=== PATIENT | male | born 1990 | race Caucasian/White ===

== ENCOUNTER 2016-10-13 16:52 | Emergency (ER) | payer OTHER ==
[2016-10-13 17:04] VITALS: BP 146/70; PULSE 82; RESP 18; TEMP 98.5
[2016-10-13] MEDS ORDERED: PROPARACAINE 0.5% OPHTH DROPS 15 ML BTL LEFT EYE STA (17:05)
[2016-10-13] MEDS ORDERED: ERYTHROMYCIN 5 MG/GM OPHTH OINT 3.5 GM TUBE RIGHT EYE STA (17:24)
--- NOTE | 2016-10-13 17:26 | ED ---
General Adult HPI - General Chief complaint: Eye Problems Stated complaint: metal in eye Time Seen by Provider: 10/13/16 17:04 Source: patient, RN notes reviewed Mode of arrival: ambulatory Limitations: no limitations - History of Present Illness Initial comments: This is a 26-year-old male presents for an body to the right eye 1 hour. Patient states he was grinding metal at home when he noticed a foreign body in his eye. Patient states he attempted to remove the foreign body but was unsuccessful. Patient states he still has a foreign body sensation. Patient denies any vision changes. Patient states he is up-to-date on his tetanus shot. Patient does not wear contacts. Patient denies any discharge from the eye. Patient denies any recent fever, chills, shortness breath, chest pain, abdominal pain, nausea/vomiting/diarrhea, back pain, numbness, tingling, hematuria, headache, or any other complaints. - Related Data Previous Rx's Medication Instructions Recorded Erythromycin Ophth Oint [Romycin 1 applic RIGHT EYE QID 7 Days 10/13/16 Ophth Oint] Allergies Allergy/AdvReac Type Severity Reaction Status Date / Time No Known Allergies Allergy Verified 10/13/16 17:06 Review of Systems ROS Statement: Those systems with pertinent positive or pertinent negative responses have been documented in the HPI. ROS Other: All systems not noted in ROS Statement are negative. Past Medical History Past Medical History: No Reported History History of Any Multi-Drug Resistant Organisms: None Reported Past Surgical History: No Surgical Hx Reported Past Psychological History: No Psychological Hx Reported Smoking Status: Current every day smoker Past Alcohol Use History: None Reported Past Drug Use History: None Reported, Marijuana General Exam - General Exam Comments Initial Comments: General: The patient is awake and alert, in no distress, and does not appear acutely ill. Eye: There is no foreign body visualized with observation or with eyelid eversion. There is mild erythema to the conjunctiva of the right eye. Left eye with normal conjunctiva. Pupils are equal, round and reactive to light, extra-ocular movements are intact. No nystagmus. No signs of icterus. Visual acuity is equal on both sides. Neck: The neck is supple, there is no tenderness or JVD. Cardiovascular: There is a regular rate and rhythm. No murmur, rub or gallop is appreciated. Respiratory: Lungs are clear to auscultation, respirations are non-labored, breath sounds are equal. No wheezes, stridor, rales, or rhonchi. Musculoskeletal: Normal ROM, no tenderness. Strength 5/5. Sensation intact. Pulses equal bilaterally 2+. Neurological: A&O x 3. CN II-XII intact, There are no obvious motor or sensory deficits. Coordination appears grossly intact. Speech is normal. Skin: Skin is warm and dry and no rashes or lesions are noted. Psychiatric: Cooperative, appropriate mood & affect, normal judgment. Limitations: no limitations Course Vital Signs 10/13/16 17:02 Temperature 98.5 F Pulse Rate 82 Respiratory 18 Rate Blood Pressure 146/70 O2 Sat by Pulse 98 Oximetry Medical Decision Making - Medical Decision Making This is a 26-year-old male presents with foreign body sensation to the right eye. On physical exam visual acuity is equal on both sides. There is no foreign body visualized with observation or with eyelid eversion. Pupils are equal, round and reactive to light, extra-ocular movements are intact. No nystagmus. There is normal conjunctiva bilaterally. No signs of icterus. Visual acuity is equal on both sides. Proparacaine was used to anesthetize the eye. Patient's symptoms were relieved after proparacaine drops. Inverted lids to check for foreign body and no foreign body was noted. A slit lamp exam was performed and corneal abrasion was noted to the 3 o'clock position around the iris. No rust ring noted. No foreign body was noted. Patient tolerated procedure well. I discussed with patient that he'll be given erythromycin ointment. I discussed follow-up with ophthalmology in one to 2 days. Discussed return parameters. Discussed over- the-counter Tylenol and or Motrin as needed for any pain. Patient was receptive to this plan and refused stronger pain medication. Discussed that patient should follow up with PCP in one to 2 days or return to the [facility] for any worsening symptoms or for any further concerns. Patient was receptive to this plan and patient will be discharged home. I discussed this case with attending physician Dr. Jack agrees with plan as stated above. Disposition Clinical Impression: Corneal abrasion Disposition: HOME SELF-CARE Condition: Good Instructions: Eye Foreign Body (ED) Additional Instructions: Please follow-up with ophthalmology in one to 2 days. Please use antibiotic ointment as prescribed. Please use [id number] Tylenol or Motrin as needed for any pain. Please follow-up with family doctor in the next 2 days of symptoms have not improved. Please return to emergency room if the symptoms increase or worsen or for any other concerns. Prescriptions: Erythromycin Ophth Oint [Romycin Ophth Oint] 1 applic RIGHT EYE QID 7 Days Referrals: Jareth Montelongo DO [Primary Care Provider] - 1-2 days Michael Zarate MD [STAFF PHYSICIAN] - 1-2 days Time of Disposition: 17:33
== END 2016-10-13 17:39 | disposition home or self-care (01) ==
LOC: EC 16:52
DX: T15.01XA Foreign body in cornea, right eye, initial encounter (principal); F17.200 Nicotine dependence, unspecified, uncomplicated; Y92.009 Unspecified place in unspecified non-institutional (private) residence as the place of occurrence of the external cause
CPT/HCPCS: 99283

== ENCOUNTER 2016-11-17 20:38 | Emergency (ER) | payer OTHER ==
[2016-11-17 21:29] VITALS: BP 138/76; PULSE 66; RESP 18; TEMP 97.6
--- NOTE | 2016-11-17 21:43 | ED ---
ENT HPI - General Chief complaint: Dental/Oral Stated complaint: Headache/Jaw Pain Time Seen by Provider: 11/17/16 21:30 Source: patient, RN notes reviewed, old records reviewed Mode of arrival: ambulatory Limitations: no limitations - History of Present Illness Initial comments: Patient is a 26-year-old male chief complaint of dental pain for approximately 2 days. Patient reports is a broken tooth. Patient states that his mainly over tooth #10. Patient denies any recent fever or chills or inability to open and close jaw. He denies any swelling around the tooth. Patient states that he has have a appointment with the dental clinic however he is unable to get at this time. Patient states that he would like to have some antibiotics to ensure that he does not have an infection when he does go to the dental clinic.Patient denies any recent fever, chills, shortness of breath, chest pain , back pain, abdominal pain, nausea vomiting, numbness or tingling, dysuria or hematuria, constipation or diarrhea, headaches or visual changes, or any other current symptoms - Related Data Previous Rx's Medication Instructions Recorded Acetaminophen-Codeine 300-30mg 1 tab PO Q4H PRN #10 tablet 11/17/16 [Tylenol #3] Penicillin V Potassium [Pen Vee K] 500 mg PO QID #40 tab 11/17/16 Allergies Allergy/AdvReac Type Severity Reaction Status Date / Time No Known Allergies Allergy Verified 11/17/16 21:25 Review of Systems ROS Statement: Those systems with pertinent positive or pertinent negative responses have been documented in the HPI. ROS Other: All systems not noted in ROS Statement are negative. Past Medical History Past Medical History: No Reported History History of Any Multi-Drug Resistant Organisms: None Reported Past Surgical History: No Surgical Hx Reported Past Psychological History: No Psychological Hx Reported Smoking Status: Current every day smoker Past Alcohol Use History: None Reported Past Drug Use History: None Reported, Marijuana General Exam Limitations: no limitations General appearance: alert, in no apparent distress Head exam: Present: atraumatic, normocephalic, normal inspection Eye exam: Present: normal appearance, PERRL, EOMI. Absent: scleral icterus, conjunctival injection, periorbital swelling ENT exam: Present: normal exam, mucous membranes moist, TM's normal bilaterally. Absent: normal oropharynx (Patient has multiple dental caries or tooth. Patient does have chipped tooth #10.) Neck exam: Present: normal inspection. Absent: tenderness, meningismus, lymphadenopathy Respiratory exam: Present: normal lung sounds bilaterally. Absent: respiratory distress, wheezes, rales, rhonchi, stridor Cardiovascular Exam: Present: regular rate, normal rhythm, normal heart sounds. Absent: systolic murmur, diastolic murmur, rubs, gallop, clicks GI/Abdominal exam: Present: soft, normal bowel sounds. Absent: distended, tenderness, guarding, rebound, rigid Extremities exam: Present: normal inspection, full ROM, normal capillary refill. Absent: tenderness, pedal edema, joint swelling, calf tenderness Back exam: Present: normal inspection Neurological exam: Present: alert, oriented X3, CN II-XII intact Psychiatric exam: Present: normal affect, normal mood Skin exam: Present: warm, dry, intact, normal color. Absent: rash Course Vital Signs 11/17/16 21:26 Temperature 97.6 F Pulse Rate 66 Respiratory 18 Rate Blood Pressure 138/76 O2 Sat by Pulse 99 Oximetry Medical Decision Making - Medical Decision Making Patient is 26-year-old male that she onset of dental pain. Patient reports that he to tooth #10. Patient has significant dental caries or Tylenol. Patient does not have a fever at this time. Patient was placed on antibiotics and pain medication. Patient advised on return parameters. Patient understands treatment plan will comply. Disposition Clinical Impression: Temporal headache, Pain, dental Disposition: HOME SELF-CARE Condition: Good Instructions: Toothache (ED) Additional Instructions: Patient advised to follow up with primary care provider if symptoms continue to persist. Patient advised to buy a mouth guard To sleep at night. [facility] [place] [address] [place] [address] [phone] (existing clients only) For new clients: [phone] 1st consult: $50 (includes Xrays) Usually 30% less then private dentist for visits after. [employer] [facility] [employer] Have to pay $50 for Xrays anmd rest is covered. [phone] Prescriptions: Acetaminophen-Codeine 300-30mg [Tylenol #3] 1 tab PO Q4H PRN #10 tablet PRN Reason: Pain Penicillin V Potassium [Pen Vee K] 500 mg PO QID #40 tab Referrals: Lidia Villanueva MD [REFERRING] - 1-2 days Time of Disposition: 21:40
== END 2016-11-17 21:49 | disposition home or self-care (01) ==
LOC: EC 20:38
DX: R51 Headache (principal); K08.89 Other specified disorders of teeth and supporting structures; F17.200 Nicotine dependence, unspecified, uncomplicated
CPT/HCPCS: 99283

== ENCOUNTER 2017-03-22 20:34 | Emergency (ER) | payer OTHER ==
[2017-03-22 20:38] VITALS: BP 123/65; PULSE 63; RESP 18; TEMP 97.6
--- NOTE | 2017-03-22 21:07 | ED ---
ENT HPI - General Chief complaint: ENT Stated complaint: Dental Pain Time Seen by Provider: 03/22/17 20:42 Source: patient, RN notes reviewed Mode of arrival: ambulatory Limitations: no limitations - History of Present Illness Initial comments: patient is a 26-year-old male presents to the emergency room for evaluation of dental pain. Patient states that he is scheduled to have his wisdom teeth pulled on 04/06/17. Patient states this his left lower teeth began increasingly bothering him over the past 2 days. Patient states he has been taking ibuprofen with no relief of symptoms. Patient states his throat is beginning to cause him pain, along with bilateral ear pain. Patient denies fevers or chills. Patient denies facial swelling. Patient denies trouble swallowing. Patient denies any other symptoms or complaints. - Related Data Previous Rx's Medication Instructions Recorded Acetaminophen with Codeine 1 tab PO Q4H PRN #12 tab 03/22/17 [Tylenol w/codeine #3] Penicillin V Potassium [Pen Vee K] 500 mg PO QID 10 Days 03/22/17 Allergies Allergy/AdvReac Type Severity Reaction Status Date / Time No Known Allergies Allergy Verified 03/22/17 20:38 Review of Systems ROS Statement: Those systems with pertinent positive or pertinent negative responses have been documented in the HPI. ROS Other: All systems not noted in ROS Statement are negative. Past Medical History Past Medical History: No Reported History History of Any Multi-Drug Resistant Organisms: None Reported Past Surgical History: No Surgical Hx Reported Past Psychological History: ADD/ADHD Smoking Status: Current every day smoker Past Alcohol Use History: None Reported Past Drug Use History: None Reported, Marijuana General Exam - General Exam Comments Initial Comments: sitting in exam room, no acute distress. Limitations: no limitations General appearance: alert, in no apparent distress Head exam: Present: atraumatic, normocephalic, normal inspection Eye exam: Present: normal appearance Expanded Mouth exam: Present: normal external inspection Teeth exam: Present: dental caries (erosion of teeth #17 and 32), dental tenderness # (17 ans 32) Throat exam: normal inspection Neck exam: Present: normal inspection Respiratory exam: Present: normal lung sounds bilaterally. Absent: respiratory distress Cardiovascular Exam: Present: regular rate, normal rhythm, normal heart sounds Extremities exam: Present: normal inspection Back exam: Present: normal inspection Neurological exam: Present: alert, oriented X3, CN II-XII intact, normal gait Psychiatric exam: Present: normal affect, normal mood Skin exam: Present: warm, dry, intact, normal color. Absent: rash Course Vital Signs 03/22/17 20:34 Temperature 97.6 F Pulse Rate 63 Respiratory 18 Rate Blood Pressure 123/65 O2 Sat by Pulse 99 Oximetry Medical Decision Making - Medical Decision Making Patient is a 26-year-old male presents to the emergency room for evaluation of dental pain. Patient placed in antibiotics and pain medications and advised to follow-up with dentist. Patient states he understands everything that was discussed with him. Return parameters discussed. Disposition Clinical Impression: Pain, dental Disposition: HOME SELF-CARE Condition: Good Instructions: Toothache (ED) Additional Instructions: Please follow up with a dentist. If you do not have a dentist, you may contact [facility]. Phone number is [phone] for existing clients. For new clients you may call [phone]. Another option is you have is the [facility]. Phone number is [phone]. Medications as directed. [place]water gargles. Cold fluids can sometimes help with pain as well. Return to the Emergency Room for any worsening or changing symptoms. Use cold compresses to the outside of the face. Prescriptions: Acetaminophen with Codeine [Tylenol w/codeine #3] 1 tab PO Q4H PRN #12 tab PRN Reason: Pain Penicillin V Potassium [Pen Vee K] 500 mg PO QID 10 Days Referrals: Jareth Montelongo DO [Primary Care Provider] - 1-2 days Time of Disposition: 21:03
== END 2017-03-22 21:14 | disposition home or self-care (01) ==
LOC: EC 20:34
DX: K08.89 Other specified disorders of teeth and supporting structures (principal); K02.9 Dental caries, unspecified; R07.0 Pain in throat; H92.03 Otalgia, bilateral; F17.200 Nicotine dependence, unspecified, uncomplicated
CPT/HCPCS: 99282

== ENCOUNTER 2019-01-20 21:03 | Emergency (ER) | payer OTHER ==
[2019-01-20] MEDS ORDERED: predniSONE 50 MG TAB PO STA (21:45)
[2019-01-20] MEDS ORDERED: IPRATROPIUM-ALBUTEROL 3 ML NEB INHALATION STA (21:45)
[2019-01-20 21:58] VITALS: RESP 16; TEMP 98.1
--- NOTE | 2019-01-20 22:34 | XR ---
EXAM: XR Chest, 2 Views CLINICAL HISTORY: ITS.REASON XR Reason: Pain TECHNIQUE: Frontal and lateral views of the chest. COMPARISON: Chest x-ray 05/05/2015 FINDINGS: Lungs: Lungs are clear of focal infiltrates or consolidations. Pleural space: No evidence of pleural effusion or pneumothorax. Heart: Heart size is within normal limits. Mediastinum: Mediastinal structures are unremarkable. Bones/joints: Imaged bony thorax is unremarkable. IMPRESSION: No evidence of acute cardiopulmonary disease.
--- NOTE | 2019-01-20 22:51 | ED ---
SOB HPI - General Chief Complaint: Shortness of Breath Stated Complaint: SOB Time Seen by Provider: 01/20/19 21:21 Source: patient Mode of arrival: ambulatory Limitations: no limitations - History of Present Illness Initial Comments: 28-year-old male patient presents to the emergency department today for evaluation of shortness of breath and cough. Patient states that he quit smoking around 22 days ago. Patient states he was using cigarettes, a vape pen, and marijuana. The patient states 3-4 days ago he developed upper respiratory symptoms including nasal congestion and cough. Patient states he feels congested in his chest but is unable to get up any sputum. He denies any fever or chills with this. Denies any sore throat. Denies any history of chronic lung conditions. Denies taking any medication for his symptoms. Patient denies any recent rash, chest pain, abdominal pain, nausea, vomiting, diarrhea, constipation, back pain, numbness, tingling, dizziness, weakness, hematuria, dysuria, urinary urgency, urinary frequency, headache, visual changes, or any other complaints. - Related Data Previous Rx's Medication Instructions Recorded Acetaminophen with Codeine 1 tab PO Q4H PRN #12 tab 03/22/17 [Tylenol w/codeine #3] Penicillin V Potassium [Pen Vee K] 500 mg PO QID 10 Days tab 03/22/17 Albuterol Sulfate [Proair Hfa] 1 - 2 puff INHALATION Q6HR PRN #1 01/20/19 inhaler predniSONE 50 mg PO DAILY #5 tablet 01/20/19 Allergies Allergy/AdvReac Type Severity Reaction Status Date / Time No Known Allergies Allergy Verified 01/20/19 21:20 Review of Systems ROS Statement: Those systems with pertinent positive or pertinent negative responses have been documented in the HPI. ROS Other: All systems not noted in ROS Statement are negative. Past Medical History Past Medical History: No Reported History History of Any Multi-Drug Resistant Organisms: None Reported Past Surgical History: No Surgical Hx Reported Past Psychological History: ADD/ADHD Smoking Status: Former smoker Past Alcohol Use History: None Reported Past Drug Use History: Marijuana General Exam Limitations: no limitations General appearance: alert, in no apparent distress, other (Physical well- developed, well-nourished adult male patient in no acute distress. Vital signs upon presentation are temperature 98.0F, pulse 81, respirations 18, blood pressure 152/82, pulse ox 99% on room air.) Eye exam: Present: normal appearance, PERRL, EOMI. Absent: scleral icterus, conjunctival injection, periorbital swelling ENT exam: Present: normal exam, normal oropharynx, mucous membranes moist Respiratory exam: Present: normal lung sounds bilaterally. Absent: respiratory distress, wheezes, rales, rhonchi, stridor Cardiovascular Exam: Present: regular rate, normal rhythm, normal heart sounds. Absent: systolic murmur, diastolic murmur, rubs, gallop, clicks GI/Abdominal exam: Present: soft, normal bowel sounds. Absent: distended, tenderness, guarding, rebound, rigid Neurological exam: Present: alert, oriented X3, CN II-XII intact Psychiatric exam: Present: normal affect, normal mood Skin exam: Present: warm, dry, intact, normal color. Absent: rash Course Vital Signs 01/20/19 01/20/19 01/20/19 21:17 21:29 21:57 Temperature 98.0 F 98.1 F Pulse Rate 81 62 Respiratory 18 18 16 Rate Blood Pressure 152/82 134/91 O2 Sat by Pulse 99 100 Oximetry 01/20/19 01/20/19 01/20/19 22:05 22:12 22:58 Temperature Pulse Rate 64 62 79 Respiratory 16 Rate Blood Pressure 134/88 O2 Sat by Pulse 97 Oximetry Medical Decision Making - Medical Decision Making 28-year-old male patient presents to the emergency department today for complaints of shortness of breath and cough. Physical examination reveals clear equal lung sounds. Patient did receive a breathing treatment here in the department, states he does feel much improvement of symptoms after receiving this. Chest x-ray showed no acute cardio pulmonary process. Given patient's recent upper respiratory illness and history of smoking there is concern for acute bronchitis. We discharged with steroids and Pro Air inhaler. He is instructed to follow-up with his primary care physician for recheck in 1-2 days. Return parameters were discussed in detail. He verbalizes understanding and agrees with this plan. - Radiology Data Radiology results: report reviewed, image reviewed Two-view x-ray of the chest is obtained. Report was reviewed in its entirety. Impression by Dr. Mcneal shows no evidence of acute cardiopulmonary disease. Disposition Clinical Impression: Acute bronchitis, Anxiety Disposition: HOME SELF-CARE Condition: Good Instructions (If sedation given, give patient instructions): Acute Bronchitis (ED), Anxiety (ED) Additional Instructions: Use medications as directed. Follow up with her primary care physician for recheck in 1-2 days. Return to the emergency department immediately for any new, worsening, or concerning symptoms. Prescriptions: predniSONE 50 mg PO DAILY #5 tablet Albuterol Sulfate [Proair Hfa] 1 - 2 puff INHALATION Q6HR PRN #1 inhaler PRN Reason: Shortness Of Breath Is patient prescribed a controlled substance at d/c from ED?: No Referrals: Jareth Montelongo DO [Primary Care Provider] - 1-2 days Time of Disposition: 22:51
[2019-01-20 22:59] VITALS: BP 134/88; PULSE 79
== END 2019-01-20 22:59 | disposition home or self-care (01) ==
LOC: EC 21:03
DX: J20.9 Acute bronchitis, unspecified (principal); F41.9 Anxiety disorder, unspecified; Z87.891 Personal history of nicotine dependence
CPT/HCPCS: 99285; 94640; 71046; J7512

== ENCOUNTER 2019-01-29 02:08 | Emergency (ER) | payer OTHER ==
[2019-01-29 02:16] VITALS: BP 144/95; TEMP 98.5
[2019-01-29] MEDS ORDERED: DIPH,PERTUS(ACELL)TETVAC-LF 0.5 ML VIAL IM ONE (02:43)
[2019-01-29] MEDS ORDERED: IPRATROPIUM-ALBUTEROL 3 ML NEB INHALATION STA (02:44)
[2019-01-29] MEDS ORDERED: AMOXIC-POT CLAV 875-125MG 1 EACH TAB PO STA (02:44)
[2019-01-29] MEDS ORDERED: ACETAMINOPHEN TAB 325 MG TAB PO STA (02:44)
--- NOTE | 2019-01-29 03:04 | CT ---
EXAM: CT Head Without Intravenous Contrast CLINICAL HISTORY: ITS.REASON CT Reason: Pain TECHNIQUE: Axial computed tomography images of the head/brain without intravenous contrast. CTDI is 45 mGy and DLP is 961 mGy-cm. This CT exam was performed using one or more of the following dose reduction techniques: automated exposure control, adjustment of the mA and/or kV according to patient size, and/or use of iterative reconstruction technique. COMPARISON: No relevant prior studies available. FINDINGS: Brain: No hemorrhage, large hypodensity, or mass effect. Ventricles: No hydrocephalus. Bones/joints: Unremarkable. Soft tissues: Unremarkable. Sinuses: Unremarkable. Mastoid air cells: Clear. IMPRESSION: No acute hemorrhage, hydrocephalus, or mass effect. EXAM: CT Cervical Spine Without Intravenous Contrast CLINICAL HISTORY: ITS.REASON CT Reason: Pain TECHNIQUE: Axial computed tomography images of the cervical spine without intravenous contrast. CTDI is 11 mGy and DLP is 322 mGy-cm. This CT exam was performed using one or more of the following dose reduction techniques: automated exposure control, adjustment of the mA and/or kV according to patient size, and/or use of iterative reconstruction technique. COMPARISON: No relevant prior studies available. FINDINGS: Vertebrae: No acute fracture. Discs/spinal canal/neural foramina: No high grade spinal canal stenosis. Soft tissues: Unremarkable. IMPRESSION: No acute fracture or subluxation.
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
[2019-01-29 03:08] VITALS: RESP 16
[2019-01-29 03:13] VITALS: PULSE 82
--- NOTE | 2019-01-29 03:16 | XR ---
EXAM: XR Right Hand Complete, 3 or More Views CLINICAL HISTORY: ITS.REASON XR Reason: Pain TECHNIQUE: Frontal, lateral and oblique views of the right hand. COMPARISON: No relevant prior studies available. FINDINGS: Bones/joints: No acute fracture. No dislocation. Soft tissues: Unremarkable. No radiopaque foreign body. IMPRESSION: No acute findings.
--- NOTE | 2019-01-29 03:17 | XR ---
EXAM: XR Chest, 2 Views CLINICAL HISTORY: ITS.REASON XR Reason: Pain TECHNIQUE: Frontal and lateral views of the chest. COMPARISON: 01/20/19 x-ray FINDINGS: Lungs: No consolidation or mass. Pleural space: No effusion. Heart: No cardiomegaly. Mediastinum: Unremarkable. Bones/joints: No acute findings. IMPRESSION: No acute cardiopulmonary process.
== END 2019-01-29 03:43 | disposition home or self-care (01) ==
LOC: EC 02:08
DX: S60.511A Abrasion of right hand, initial encounter (principal); S00.81XA Abrasion of other part of head, initial encounter; S20.311A Abrasion of right front wall of thorax, initial encounter; R11.2 Nausea with vomiting, unspecified; J45.909 Unspecified asthma, uncomplicated; Z23 Encounter for immunization; Z87.891 Personal history of nicotine dependence; Y04.0XXA Assault by unarmed brawl or fight, initial encounter
CPT/HCPCS: 70450; 71046; 72125; 90471; 90715; 94640; 99285

== ENCOUNTER 2019-08-30 15:02 | Emergency (ER) | payer OTHER ==
[2019-08-30 15:24] VITALS: RESP 18; TEMP 98.1
[2019-08-30] MEDS ORDERED: SODIUM CHLORIDE 0.9% 1,000 ML IV STA (15:45)
--- NOTE | 2019-08-30 15:45 | ED ---
General Adult HPI - General Chief complaint: Nausea/Vomiting/Diarrhea Stated complaint: Vomiting, Fever Time Seen by Provider: 08/30/19 15:31 Source: patient Mode of arrival: ambulatory Limitations: no limitations - History of Present Illness Initial comments: Patient is a 22-year-old male presenting to the emergency department with this patient complaint of nausea vomiting diarrhea. Patient reports he was exposed to his girlfriend who had similar type symptoms. Patient reports generalized body aches. He denies any abdominal pain but states an occasional ache after episodes of vomiting. Patient reports his girlfriend developed similar symptoms after they had breakfast together at a restaurant. Denies hematemesis, hematuria, hematochezia or melena. Does report chills but denies any fevers. Denies taking any other medication to alleviate his symptoms. - Related Data Previous Rx's Medication Instructions Recorded Acetaminophen with Codeine 1 tab PO Q4H PRN #12 tab 03/22/17 [Tylenol w/codeine #3] Penicillin V Potassium [Pen Vee K] 500 mg PO QID 10 Days tab 03/22/17 Albuterol Sulfate [Proair Hfa] 1 - 2 puff INHALATION Q6HR PRN #1 01/20/19 inhaler predniSONE 50 mg PO DAILY #5 tablet 01/20/19 Amoxicillin/Potassium Clav 1 each PO Q12HR #20 tab 01/29/19 [Augmentin 875-125 Tablet] Ondansetron Odt [Zofran Odt] 4 mg PO Q8HR PRN #10 tab 08/30/19 Allergies Allergy/AdvReac Type Severity Reaction Status Date / Time No Known Allergies Allergy Verified 08/30/19 15:24 Review of Systems ROS Statement: Those systems with pertinent positive or pertinent negative responses have been documented in the HPI. ROS Other: All systems not noted in ROS Statement are negative. Past Medical History Past Medical History: No Reported History History of Any Multi-Drug Resistant Organisms: None Reported Past Surgical History: No Surgical Hx Reported Past Psychological History: ADD/ADHD Smoking Status: Current every day smoker Past Alcohol Use History: None Reported Past Drug Use History: None Reported General Exam Limitations: no limitations General appearance: alert, in no apparent distress Head exam: Present: atraumatic, normocephalic, normal inspection Eye exam: Present: normal appearance, PERRL, EOMI Pupils: Present: normal accommodation ENT exam: Present: normal exam, normal oropharynx (Uvula midline. No tonsillar exudates or erythema.), mucous membranes moist, TM's normal bilaterally, normal external ear exam Neck exam: Present: normal inspection, full ROM Respiratory exam: Present: normal lung sounds bilaterally Cardiovascular Exam: Present: regular rate, normal rhythm, normal heart sounds GI/Abdominal exam: Present: soft. Absent: distended, tenderness, guarding Extremities exam: Present: normal inspection, full ROM Back exam: Present: normal inspection, full ROM Neurological exam: Present: alert, oriented X3 Psychiatric exam: Present: normal affect, normal mood Skin exam: Present: warm, dry, intact, normal color Course Vital Signs 08/30/19 08/30/19 15:21 17:08 Temperature 98.1 F Pulse Rate 65 73 Respiratory 18 18 Rate Blood Pressure 111/78 135/84 O2 Sat by Pulse 97 97 Oximetry Medical Decision Making - Medical Decision Making Patient is a 21-year-old male presenting to emergency Department with a chief complaint of nausea vomiting diarrhea. On initial evaluation patient is nauseous but is unable to vomit. Influenza negative. Patient given fluids, antiemetics. Reevaluation patient reports his symptoms have greatly improved. I suspect the patient has gastroenteritis considering his girlfriend has similar symptoms after eating at a restaurant. Patient has minimal abdominal pain and is only present due to the repeated vomiting. No fevers. Patient will be discharged with Zofran and advised to drink lots of fluids. Strict return parameters were thoroughly discussed with patient was under sitting agreeable. Case discussed with physician. - Lab Data Lab Results 08/30/19 Range/Units 16:05 Influenza Type A RNA Not Detected (Not Detectd) Influenza Type B (PCR) Not Detected (Not Detectd) Disposition Clinical Impression: Gastroenteritis, Food poisoning Disposition: HOME SELF-CARE Condition: Stable Instructions (If sedation given, give patient instructions): Acute Nausea and Vomiting (ED) Additional Instructions: Take prescribed medication as directed. Please drink lots of fluids. Please return to emergency department if symptoms worsen. Prescriptions: Ondansetron Odt [Zofran Odt] 4 mg PO Q8HR PRN #10 tab PRN Reason: Nausea Is patient prescribed a controlled substance at d/c from ED?: No Referrals: Lidia Villanueva MD [Primary Care Provider] - 1-2 days Time of Disposition: 16:55
[2019-08-30] MEDS ORDERED: ONDANSETRON 4 MG ODT STARTER PACK 2 TAB BTL PO STA (16:54)
[2019-08-30 17:10] VITALS: BP 135/84; PULSE 73
== END 2019-08-30 17:09 | disposition home or self-care (01) ==
LOC: EC 15:02
DX: A05.9 Bacterial foodborne intoxication, unspecified (principal); F17.200 Nicotine dependence, unspecified, uncomplicated
CPT/HCPCS: 87502; 99284; 96360; S0119

== ENCOUNTER 2019-11-11 | Emergency (ER) | payer OTHER | END 2019-11-11 21:35 | disposition home or self-care (01) | CPT/HCPCS: 71046; 99284 ==

== ENCOUNTER 2020-02-29 10:34 | Emergency (ER) | payer OTHER ==
[2020-02-29 10:41] VITALS: RESP 18; TEMP 98.5
[2020-02-29] MEDS ORDERED: LIDOCAINE VISCOUS 2% 15 ML CUP MUCOUS MEM ONE (10:58)
[2020-02-29] MEDS ORDERED: DEXAMETHASONE 4 MG TAB PO STA (11:43)
--- NOTE | 2020-02-29 11:47 | ED ---
ENT HPI - General Chief complaint: ENT Stated complaint: sore throat Time Seen by Provider: 02/29/20 10:44 Source: patient Mode of arrival: ambulatory Limitations: no limitations - History of Present Illness Initial comments: Patient is a 29-year-old male with no past medical history who presents to the emergency room with reported sore throat. States it is throat felt sore a little bit last night. He states he slept very little. He stayed up all night smoking "a lot of cigarettes and weed." Reports there was severe this morning however has gotten better over the course of the day. He did not take any medications for his symptoms. He denies drooling, trismus, hoarseness or stridor. No sensation that his airway is closing off. Denies any neck pain. No ear pain, sore throat, nasal drainage. No sick contacts or recent travel. No fevers or chills. There are no alleviating, Perceptin or modifying factors - Related Data Previous Rx's Medication Instructions Recorded Acetaminophen with Codeine 1 tab PO Q4H PRN #12 tab 03/22/17 [Tylenol w/codeine #3] Penicillin V Potassium [Pen Vee K] 500 mg PO QID 10 Days tab 03/22/17 Albuterol Sulfate [Proair Hfa] 1 - 2 puff INHALATION Q6HR PRN #1 01/20/19 inhaler predniSONE 50 mg PO DAILY #5 tablet 01/20/19 Amoxicillin/Potassium Clav 1 each PO Q12HR #20 tab 01/29/19 [Augmentin 875-125 Tablet] Ondansetron Odt [Zofran Odt] 4 mg PO Q8HR PRN #10 tab 08/30/19 Albuterol Inhaler (Mhu) [Ventolin 1 - 2 puff INHALATION RT-Q6H PRN 11/11/19 Hfa Inhaler (Mhu)] #1 inhaler Amoxicillin 500 mg PO Q8H #21 capsule 11/11/19 Promethazine/Dextromethorphan 5 ml PO TID #120 ml 11/11/19 [Phenergan DM Syrup] predniSONE 50 mg PO DAILY #5 tablet 11/11/19 Allergies Allergy/AdvReac Type Severity Reaction Status Date / Time No Known Allergies Allergy Verified 02/29/20 10:41 Review of Systems ROS Statement: Those systems with pertinent positive or pertinent negative responses have been documented in the HPI. ROS Other: All systems not noted in ROS Statement are negative. Past Medical History Past Medical History: No Reported History History of Any Multi-Drug Resistant Organisms: None Reported Past Surgical History: No Surgical Hx Reported Past Psychological History: ADD/ADHD Smoking Status: Current every day smoker Past Alcohol Use History: Occasional Past Drug Use History: Marijuana General Exam Limitations: no limitations General appearance: alert, in no apparent distress Head exam: Present: atraumatic, normocephalic, normal inspection Eye exam: Present: normal appearance, PERRL, EOMI. Absent: scleral icterus, conjunctival injection, periorbital swelling ENT exam: Present: normal exam, mucous membranes moist, other (no drooling, trismus, hoarseness or stridor) Neck exam: Present: normal inspection. Absent: tenderness, meningismus, lymphadenopathy Respiratory exam: Present: normal lung sounds bilaterally. Absent: respiratory distress, wheezes, rales, rhonchi, stridor Course Vital Signs 02/29/20 02/29/20 10:38 11:52 Temperature 98.5 F Pulse Rate 77 70 Respiratory 18 18 Rate Blood Pressure 131/86 130/80 O2 Sat by Pulse 98 98 Oximetry Medical Decision Making - Medical Decision Making The patient placed into room 6. A thorough history and physical exam is performed. Patient's throat is swabbed for strep which is negative. He was given viscous lidocaine and a dose of Decadron. Patient is to follow up with his primary care doctor 2-4 days. Return to the emergency room for any new or worsening symptoms per patient was in agreement with the treatment plan is discharged in stable condition - Lab Data Lab Results 02/29/20 Range/Units 10:58 Group A Strep Rapid Negative (Negative) Disposition Clinical Impression: Throat irritation Disposition: HOME SELF-CARE Condition: Stable Instructions (If sedation given, give patient instructions): Pharyngitis (ED) Additional Instructions: Please follow up with your primary care doctor. Return to the emergency room for any new or worsening symptoms Is patient prescribed a controlled substance at d/c from ED?: No Referrals: Lidia Villanueva MD [Primary Care Provider] - 1-2 days Time of Disposition: 11:45
[2020-02-29 11:55] VITALS: BP 130/80; PULSE 70
== END 2020-02-29 11:52 | disposition home or self-care (01) ==
LOC: EC 10:34
DX: R07.0 Pain in throat (principal); F17.200 Nicotine dependence, unspecified, uncomplicated
CPT/HCPCS: 87081; 87430; 99283; J8540

== ENCOUNTER 2021-05-04 09:33 | Emergency (ER) | payer OTHER ==
[2021-05-04 09:41] VITALS: BP 130/83; PULSE 78; RESP 18; TEMP 98
--- NOTE | 2021-05-04 10:39 | ED ---
Skin/Abscess/FB HPI - General Chief complaint: Skin/Abscess/Foreign Body Stated complaint: back pain/lump Time Seen by Provider: 05/04/21 09:59 Source: patient, RN notes reviewed Mode of arrival: ambulatory Limitations: no limitations - History of Present Illness Initial comments: Patient is a 30-year-old male that presents to emergency department complaining of a potential abscess/ingrown hair on his tailbone. He notes that when he sits down he can feel and his sometimes pointed out to him. He notes he was seen several days ago at a different hospital given some antibiotics. He notes that it is painful every once a while when it hits just right. She notes that he is having a difficult time finding get her feeling it today. She denied any other issues at this time. He was otherwise a well-appearing 30-year-old male in no apparent distress or pain. She denied any chest pain shortness of breath headache nausea vomiting diarrhea constipation fever fatigue chills. - Related Data Previous Rx's Medication Instructions Recorded Acetaminophen with Codeine 1 tab PO Q4H PRN #12 tab 03/22/17 [Tylenol w/codeine #3] Penicillin V Potassium [Pen Vee K] 500 mg PO QID 10 Days tab 03/22/17 Albuterol Sulfate [Proair Hfa] 1 - 2 puff INHALATION Q6HR PRN #1 01/20/19 inhaler predniSONE 50 mg PO DAILY #5 tablet 01/20/19 Amoxicillin/Potassium Clav 1 each PO Q12HR #20 tab 01/29/19 [Augmentin 875-125 Tablet] Ondansetron Odt [Zofran Odt] 4 mg PO Q8HR PRN #10 tab 08/30/19 Albuterol Inhaler (Mhu) [Ventolin 1 - 2 puff INHALATION RT-Q6H PRN 11/11/19 Hfa Inhaler (Mhu)] #1 inhaler Amoxicillin 500 mg PO Q8H #21 capsule 11/11/19 Promethazine/Dextromethorphan 5 ml PO TID #120 ml 11/11/19 [Phenergan DM Syrup] predniSONE 50 mg PO DAILY #5 tablet 11/11/19 Allergies Allergy/AdvReac Type Severity Reaction Status Date / Time No Known Allergies Allergy Verified 05/04/21 09:41 Review of Systems ROS Statement: Those systems with pertinent positive or pertinent negative responses have been documented in the HPI. ROS Other: All systems not noted in ROS Statement are negative. Past Medical History Past Medical History: No Reported History History of Any Multi-Drug Resistant Organisms: None Reported Past Surgical History: No Surgical Hx Reported Past Psychological History: ADD/ADHD Smoking Status: Never smoker Past Alcohol Use History: Occasional Past Drug Use History: Marijuana General Exam Limitations: no limitations General appearance: alert, in no apparent distress Head exam: Present: atraumatic, normocephalic, normal inspection Eye exam: Present: normal appearance, PERRL, EOMI. Absent: scleral icterus, conjunctival injection, periorbital swelling Neck exam: Present: normal inspection Respiratory exam: Present: normal lung sounds bilaterally. Absent: respiratory distress, wheezes, rales, rhonchi, stridor Cardiovascular Exam: Present: regular rate, normal rhythm, normal heart sounds. Absent: systolic murmur, diastolic murmur, rubs, gallop, clicks GI/Abdominal exam: Present: soft, normal bowel sounds. Absent: distended, tenderness, guarding, rebound, rigid Extremities exam: Present: normal inspection, full ROM, normal capillary refill. Absent: tenderness, pedal edema, joint swelling, calf tenderness Neurological exam: Present: alert, oriented X3 Psychiatric exam: Present: normal affect, normal mood Skin exam: Present: warm, dry, intact, normal color, other (No pilonidal cyst, folliculitis noted on coccyx or low back. No erythema.). Absent: rash, erythema Course Vital Signs 05/04/21 09:38 Temperature 98 F Pulse Rate 78 Respiratory 18 Rate Blood Pressure 130/83 O2 Sat by Pulse 98 Oximetry Medical Decision Making - Medical Decision Making 30-year-old male complaining of right low back bump/abscess. Upon physical exam there was no noticeable area of fluctuance, erythema, tenderness after palpating the low back for several minutes. X-ray the lumbar spine ordered per patient's request. X-ray negative for any acute process. Case discussed with Dr. Greene, patient can discharge home with follow-up to primary care. - Radiology Data Radiology results: report reviewed, image reviewed X-ray of the lumbar spine: Normal 3 view lumbar spine. Disposition Clinical Impression: Low back pain Disposition: HOME SELF-CARE Condition: Stable Instructions (If sedation given, give patient instructions): Abscess (ED) Additional Instructions: Please return to the Emergency Department if symptoms worsen or any other concerns. Follow-up primary care in 1-2 days. Is patient prescribed a controlled substance at d/c from ED?: No Referrals: Lidia Villanueva MD [Primary Care Provider] - 1-2 days Time of Disposition: 11:23
--- NOTE | 2021-05-04 11:19 | XR ---
EXAMINATION TYPE: XR lumbar spine 2 or 3V DATE OF EXAM: 05/04/2021 COMPARISON: None HISTORY: Pain TECHNIQUE: Lumbar spine is examined in 3 projections FINDINGS: There are 5 lumbar-type vertebral bodies. The pedicles are intact. Disc heights are preserv ed. Vertebral body heights are preserved. Alignment is normal. IMPRESSION: 1. Normal three-view lumbar spine
== END 2021-05-04 11:32 | disposition home or self-care (01) ==
LOC: EC 09:33
DX: M54.5 Low back pain (principal); F90.9 Attention-deficit hyperactivity disorder, unspecified type; F12.90 Cannabis use, unspecified, uncomplicated; Z72.89 Other problems related to lifestyle
CPT/HCPCS: 72100; 99283

== ENCOUNTER 2023-06-01 03:22 | Emergency (ER) | payer BC, OTHER ==
[2023-06-01 03:45] VITALS: RESP 18; TEMP 97.7
[2023-06-01] MEDS ORDERED: MAG HYDROX/AL HYDROX/SIMETH 30 ML, HYOSCYAMINE ELIXIR 10 ML, LIDOCAINE 2% GLYDO JELLY 1... PO STA ×3 (04:37)
--- NOTE | 2023-06-01 06:01 | ED ---
ENT HPI - General Chief complaint: ENT Stated complaint: ear pain Time Seen by Provider: 06/01/23 04:27 Source: patient Mode of arrival: ambulatory Limitations: no limitations - History of Present Illness Initial comments: This patient is 32-year-old man having constellation of symptoms that started approximately 2 days ago now. He states he is having sore throat associated with left ear pain. He has had mild headache. Has not noted definite fever. No cough. He does have some rhinorrhea MD complaint: tooth pain, ear pain Onset/Timin -: days(s) Location: L ear, throat Severity: moderate Quality: dull Consistency: constant Improves with: none Worsens with: none - Related Data Previous Rx's Medication Instructions Recorded Acetaminophen with Codeine 1 tab PO Q4H PRN #12 tab 03/22/17 [Tylenol w/codeine #3] Penicillin V Potassium [Pen Vee K] 500 mg PO QID 10 Days tab 03/22/17 Albuterol Sulfate [Proair Hfa] 1 - 2 puff INHALATION Q6HR PRN #1 01/20/19 inhaler predniSONE 50 mg PO DAILY #5 tablet 01/20/19 Amoxicillin/Potassium Clav 1 each PO Q12HR #20 tab 01/29/19 [Augmentin 875-125 Tablet] Ondansetron Odt [Zofran Odt] 4 mg PO Q8HR PRN #10 tab 08/30/19 Albuterol Inhaler [Ventolin Hfa 1 - 2 puff INHALATION RT-Q6H PRN 11/11/19 Inhaler] #1 inhaler Amoxicillin 500 mg PO Q8H #21 capsule 11/11/19 Promethazine/Dextromethorphan 5 ml PO TID #120 ml 11/11/19 [Phenergan DM Syrup] predniSONE 50 mg PO DAILY #5 tablet 11/11/19 Lidocaine Viscous [Xylocaine 5 ml PO Q3HR PRN #100 ml 06/01/23 Viscous 2%] Lidocaine Viscous [Xylocaine 5 ml PO Q3HR PRN #100 ml 06/01/23 Viscous 2%] Allergies Allergy/AdvReac Type Severity Reaction Status Date / Time No Known Allergies Allergy Verified 04/23/22 00:44 Review of Systems ROS Statement: Those systems with pertinent positive or pertinent negative responses have been documented in the HPI. ROS Other: All systems not noted in ROS Statement are negative. Constitutional: Denies: fever, chills ENT: Reports: ear pain, throat pain. Denies: hearing loss Respiratory: Denies: cough, dyspnea Cardiovascular: Denies: chest pain, palpitations Gastrointestinal: Denies: abdominal pain, nausea, vomiting Skin: Denies: rash Neurological: Reports: headache Past Medical History Past Medical History: No Reported History History of Any Multi-Drug Resistant Organisms: None Reported Past Surgical History: No Surgical Hx Reported Past Psychological History: ADD/ADHD Smoking Status: Never smoker Past Alcohol Use History: Occasional Past Drug Use History: Marijuana General Exam Limitations: no limitations General appearance: alert, in no apparent distress Head exam: Present: atraumatic, normocephalic Eye exam: Present: normal appearance. Absent: scleral icterus, conjunctival injection ENT exam: Present: mucous membranes moist, TM's normal bilaterally, normal external ear exam, other (There is some injection of the pharynx. No exudate.) Neck exam: Present: normal inspection, full ROM, lymphadenopathy. Absent: tenderness, meningismus Respiratory exam: Present: normal lung sounds bilaterally. Absent: respiratory distress, wheezes, rales, rhonchi, stridor Cardiovascular Exam: Present: regular rate, normal rhythm, normal heart sounds. Absent: systolic murmur, diastolic murmur GI/Abdominal exam: Present: soft. Absent: tenderness, guarding, organomegaly, mass Skin exam: Present: warm, dry, intact, normal color. Absent: rash Course Vital Signs 06/01/23 06/01/23 03:38 06:26 Temperature 97.7 F Pulse Rate 63 59 L Respiratory 18 18 Rate Blood Pressure 138/74 143/50 O2 Sat by Pulse 99 99 Oximetry Medical Decision Making - Medical Decision Making Was pt. sent in by a medical professional or institution (, PA, PATTERNMAKER APPRENTICE METAL, urgent care, hospital, or detention...) When possible be specific @ -[No] Did you speak to anyone other than the patient for history (EMS, parent, family, police, friend...)? What history was obtained from this source @ -[No] Did you review nursing and triage notes (agree or disagree)? Why? @ -[I reviewed and agree with nursing and triage notes] Were old charts reviewed (outside hosp., previous admission, EMS record, old EKG, old radiological studies, urgent care reports/EKG's, detention records)? Report findings @ -[No old charts were reviewed] Differential Diagnosis (chest pain, altered mental status, abdominal pain women, abdominal pain men, vaginal bleeding, weakness, fever, dyspnea, syncope, headache, dizziness, GI bleed, back pain, seizure, CVA, palpatations, mental health, musculoskeletal)? @ -[Differential diagnosis for the patient's symptoms includes viral upper respiratory infection, strep pharyngitis, other bacterial pharyngitis, environmental ALLERGIES, this list not comprehensive EKG interpreted by me (3pts min.). @ -[ X-rays interpreted by me (1pt min.). @ -[None done] CT interpreted by me (1pt min.). @ -[None done] U/S interpreted by me (1pt. min.). @ -[None done] What testing was considered but not performed or refused? (CT, X-rays, U/S, labs)? Why? @ -[None] What meds were considered but not given or refused? Why? @ -[None] Did you discuss the management of the patient with other professionals (professionals i.e. , PA, PATTERNMAKER APPRENTICE METAL, lab, RT, psych nurse, social insurance specialist, frame maker, teacher, parole or probation officer, returned case inspector)? Give summary @ -[No] Was smoking cessation discussed for >3mins.? @ -[No] Was critical care preformed (if so, how long)? @ -[No] Were there social determinants of health that impacted care today? How? (Homelessness, low income, unemployed, alcoholism, drug addiction, transportation, low edu. Level, literacy, decrease access to med. care, [facility], rehab)? @ -[No] Was there de-escalation of care discussed even if they declined (Discuss DNR or withdrawal of care, Hospice)? DNR status @ -[No] What co-morbidities impacted this encounter? (DM, HTN, Smoking, COPD, CAD, Cancer, CVA, ARF, Chemo, Hep., AIDS, mental health diagnosis, sleep apnea, morbid obesity)? @ -[None] Was patient admitted / discharged? Hospital course, mention meds given and route, prescriptions, significant lab abnormalities, going to OR and other pertinent info. @ -[Patient's 32-year-old man with upper respiratory symptoms most consistent with viral etiology. The appearance not characteristic of strep, and swab is negative. Discussed appropriate further care and follow-up as well as return parameters Undiagnosed new problem with uncertain prognosis? @ -[No] Drug Therapy requiring intensive monitoring for toxicity (Heparin, Nitro, Insulin, Cardizem)? @ -[No] Were any procedures done? @ -[No] Diagnosis/symptom? @ -[Acute pharyngitis, probable viral Acute, or Chronic, or Acute on Chronic? @ -[Acute Uncomplicated (without systemic symptoms) or Complicated (systemic symptoms)? @ -[Uncomplicated Side effects of treatment? @ -[No] Exacerbation, Progression, or Severe Exacerbation? @ -[No] Poses a threat to life or bodily function? How? (Chest pain, [place], [place], pneumonia, PE, COPD, DKA, ARF, appy, cholecystitis, CVA, Diverticulitis, Homicidal, Suicidal, threat to staff... and all critical care pts) @ -[No] - Lab Data Lab Results 06/01/23 06/01/23 Range/Units 04:25 04:55 Coronavirus (PCR) Not Detected (Not Detectd) Group A Strep (PCR) NOT DETECTED (Not Detectd) Disposition Clinical Impression: Pharyngitis Disposition: HOME SELF-CARE Condition: Good Instructions (If sedation given, give patient instructions): Pharyngitis (ED) Prescriptions: Lidocaine Viscous [Xylocaine Viscous 2%] 5 ml PO Q3HR PRN #100 ml PRN Reason: Sore Throat Lidocaine Viscous [Xylocaine Viscous 2%] 5 ml PO Q3HR PRN #100 ml PRN Reason: Sore Throat Is patient prescribed a controlled substance at d/c from ED?: No Referrals: None,Stated [Primary Care Provider] - 1-2 days
[2023-06-01 06:30] VITALS: BP 143/50; PULSE 59
== END 2023-06-01 06:27 | disposition home or self-care (01) ==
LOC: EC 03:22
DX: J02.9 Acute pharyngitis, unspecified (principal); Z86.59 Personal history of other mental and behavioral disorders; Z20.822 Contact with and (suspected) exposure to COVID-19
CPT/HCPCS: 87635; 87651; 99283

== ENCOUNTER 2023-09-14 00:34 | Emergency (ER) | payer OTHER ==
[2023-09-14 00:42] VITALS: TEMP 97.9
[2023-09-14 01:44] LABS: Basophils % (A) 1 %; Eosinophils # (A) 0.1 k/uL (0-0.7); Eosinophils % (A) 1 %; HCT 44.8 % (39.0-53.0); HGB 15.3 gm/dL (13.0-17.5); Lymphocytes # (A) 3.8 k/uL (1.0-4.8); Lymphocytes % (A) 50 %; MCH 29.8 pg (25.0-35.0); MCHC 34.1 g/dL (31.0-37.0); MCV 87.4 fL (80.0-100.0); Mean Platelet Volume 8.1; Monocytes # (A) 0.4 k/uL (0-1.0); Monocytes % (A) 6 %; Neutrophils % (A) 39 %; Platelet Count 181 k/uL (150-450); RBC 5.13 m/uL (4.30-5.90); WBC 7.5 k/uL (3.8-10.6)
[2023-09-14 01:49] LABS: ALT 21 U/L (4-49); AST 28 U/L (17-59); African American GFR (CKD) >90 (>60 ml/min/1.73 sqM); Albumin 5.1 g/dL (3.5-5.0); Alkaline Phosphatase 54 U/L (38-126); Anion Gap 11 mmol/L; Blood Urea Nitrogen 14 mg/dL (9-20); Calcium 9.6 mg/dL (8.4-10.2); Carbon Dioxide 26 mmol/L (22-30); Chloride 103 mmol/L (98-107); Glucose 98 mg/dL (74-99); Magnesium 2.1 mg/dL (1.6-2.3); Non-African American GFR(CKD) >90 (>60 ml/min/1.73 sqM); Potassium 3.6 mmol/L (3.5-5.1); Sodium 140 mmol/L (137-145); Total Bilirubin 0.5 mg/dL (0.2-1.3); Total Protein 8.2 g/dL (6.3-8.2)
[2023-09-14 01:53] LABS: INR 1.1 (<1.2); Prothrombin Time 11.5 sec (10.0-12.5)
--- NOTE | 2023-09-14 01:54 | ED ---
Chest Pain HPI - General Chief Complaint: Chest Pain Stated Complaint: Chest Pain Time Seen by Provider: 09/14/23 00:45 Source: patient Mode of arrival: ambulatory Limitations: no limitations - History of Present Illness Initial Comments: 33-year-old male presenting to the ED with a chief complaint of chest pain. Patient rates for the past month he has had what feels like a pulled muscle on the side of his chest. Denies any shortness of breath with this. Patient notes that his daughter was recently born and has a heart condition which concerned hi m prompting presentation to the ED for further evaluation. Patient does not use tobacco however admits to smoking marijuana. No other complaints. - Related Data Previous Rx's Medication Instructions Recorded Acetaminophen with Codeine 1 tab PO Q4H PRN #12 tab 03/22/17 [Tylenol w/codeine #3] Penicillin V Potassium [Pen Vee K] 500 mg PO QID 10 Days tab 03/22/17 Albuterol Sulfate [Proair Hfa] 1 - 2 puff INHALATION Q6HR PRN #1 01/20/19 inhaler predniSONE 50 mg PO DAILY #5 tablet 01/20/19 Amoxicillin/Potassium Clav 1 each PO Q12HR #20 tab 01/29/19 [Augmentin 875-125 Tablet] Ondansetron Odt [Zofran Odt] 4 mg PO Q8HR PRN #10 tab 08/30/19 Albuterol Inhaler [Ventolin Hfa 1 - 2 puff INHALATION RT-Q6H PRN 11/11/19 Inhaler] #1 inhaler Amoxicillin 500 mg PO Q8H #21 capsule 11/11/19 Promethazine/Dextromethorphan 5 ml PO TID #120 ml 11/11/19 [Phenergan DM Syrup] predniSONE 50 mg PO DAILY #5 tablet 11/11/19 Lidocaine Viscous [Xylocaine 5 ml PO Q3HR PRN #100 ml 06/01/23 Viscous 2%] Lidocaine Viscous [Xylocaine 5 ml PO Q3HR PRN #100 ml 06/01/23 Viscous 2%] Allergies Allergy/AdvReac Type Severity Reaction Status Date / Time No Known Allergies Allergy Verified 09/14/23 00:39 Review of Systems ROS Statement: Those systems with pertinent positive or pertinent negative responses have been documented in the HPI. ROS Other: All systems not noted in ROS Statement are negative. Past Medical History Past Medical History: No Reported History History of Any Multi-Drug Resistant Organisms: None Reported Past Surgical History: No Surgical Hx Reported Past Psychological History: ADD/ADHD Smoking Status: Never smoker Past Alcohol Use History: Occasional Past Drug Use History: Marijuana General Exam Limitations: no limitations General appearance: alert, in no apparent distress Eye exam: Present: normal appearance Neck exam: Present: normal inspection Respiratory exam: Present: normal lung sounds bilaterally, other (Reproducible left chest wall tenderness to palpation.) Cardiovascular Exam: Present: regular rate, normal rhythm Neurological exam: Present: alert, oriented X3 Skin exam: Present: warm, dry Course Vital Signs 09/14/23 09/14/23 00:36 02:20 Temperature 97.9 F Pulse Rate 57 L 58 L Respiratory 18 16 Rate Blood Pressure 154/86 119/76 O2 Sat by Pulse 100 97 Oximetry Chest Pain MDM - MDM Was pt. sent in by a medical professional or institution (, PA, ROAD DESIGN ENGINEER, urgent care, hospital, or skilled nursing...) When possible be specific @ -No Did you speak to anyone other than the patient for history (EMS, parent, family, police, friend...)? What history was obtained from this source @ -No Did you review nursing and triage notes (agree or disagree)? Why? @ -I reviewed and agree with nursing and triage notes Were old charts reviewed (outside hosp., previous admission, EMS record, old EKG, old radiological studies, urgent care reports/EKG's, skilled nursing records)? Report findings @ -No old charts were reviewed Differential Diagnosis (chest pain, altered mental status, abdominal pain women, abdominal pain men, vaginal bleeding, weakness, fever, dyspnea, syncope, headache, dizziness, GI bleed, back pain, seizure, CVA, palpatations, mental health, musculoskeletal)? @ -Differential Chest Pain: Stable Angina, Unstable Angina, STEMI, NSTEMI Aortic Dissection, Pneumothorax, Musculoskeletal, Esophageal Spasm GERD, Cholecystitis, Pancreatitis, Zoster, this is not meant to be an all-inclusive list. EKG interpreted by me (3pts min.). @ -EKG shows a sinus rhythm at [address]-T wave changes. GA 125, QRS 89, QT/QTc 413/407. X-rays interpreted by me (1pt min.). @ -Chest x-ray interpreted by me showing no acute finding. CT interpreted by me (1pt min.). @ -None done U/S interpreted by me (1pt. min.). @ -None done What testing was considered but not performed or refused? (CT, X-rays, U/S, labs)? Why? @ -None What meds were considered but not given or refused? Why? @ -None Did you discuss the management of the patient with other professionals (professionals i.e. DrGogo, PA, ROAD DESIGN ENGINEER, lab, RT, psych nurse, social work assistant, supervisor coke handling, teacher, credit products officer, behavioral health case manager)? Give summary @ -No Was smoking cessation discussed for >3mins.? @ -No Was critical care preformed (if so, how long)? @ -No Were there social determinants of health that impacted care today? How? (Homelessness, low income, unemployed, alcoholism, drug addiction, transportation, low edu. Level, literacy, decrease access to med. care, assisted, rehab)? @ -No Was there de-escalation of care discussed even if they declined (Discuss DNR or withdrawal of care, Hospice)? DNR status @ -No What co-morbidities impacted this encounter? (DM, HTN, Smoking, COPD, CAD, Cancer, CVA, ARF, Chemo, Hep., AIDS, mental health diagnosis, sleep apnea, morbid obesity)? @ -None Was patient admitted / discharged? Hospital course, mention meds given and route, prescriptions, significant lab abnormalities, going to OR and other pertinent info. @ -Discharge 33-year-old male presenting to the ED with chief complaint of chest pain for the last month. Laboratory studies including CBC, CMP, troponin unremarkable. EKG showed a normal sinus rhythm without acute ST or T-wave changes. On exam, patient has reproducible chest wall tenderness to palpation. At this time vital signs stable afebrile. Discharged home in stable. Discussed return precautions with patient who verbalizes agreement. Undiagnosed new problem with uncertain prognosis? @ -No Drug Therapy requiring intensive monitoring for toxicity (Heparin, Nitro, Insulin, Cardizem)? @ -No Were any procedures done? @ -No Diagnosis/symptom? @ -Chest pain Acute, or Chronic, or Acute on Chronic? @ -Acute Uncomplicated (without systemic symptoms) or Complicated (systemic symptoms)? @ -Uncomplicated Side effects of treatment? @ -No Exacerbation, Progression, or Severe Exacerbation? @ -No Poses a threat to life or bodily function? How? (Chest pain, [place], [place], pneumonia, PE, COPD, DKA, ARF, appy, cholecystitis, CVA, Diverticulitis, Homicidal, Suicidal, threat to staff... and all critical care pts) @ -No Disposition Clinical Impression: Chest pain Disposition: HOME SELF-CARE Condition: Good Additional Instructions: Please return to the Emergency Department if symptoms worsen or any other concerns. Please follow up with your PCP. Is patient prescribed a controlled substance at d/c from ED?: No Referrals: None,Stated [Primary Care Provider] - 1-2 days Time of Disposition: 02:56
--- NOTE | 2023-09-14 02:17 | XR ---
EXAM: XR Chest, 2 Views CLINICAL HISTORY: ITS.REASON XR Reason: Chest Pain TECHNIQUE: Frontal and lateral views of the chest. Limited by overlying EKG leads. COMPARISON: Chest x-ray 11/11/2019. FINDINGS: Lungs: Clear. No consolidation. Pleural space: No pneumothorax. Heart: No cardiomegaly. Mediastinum: Unremarkable. Bones/Soft Tissues: No acute abnormality. IMPRESSION: 1. No acute process, and no change.
[2023-09-14 02:23] VITALS: BP 119/76; PULSE 58; RESP 16
== END 2023-09-14 03:07 | disposition home or self-care (01) ==
LOC: EC 00:34
DX: R00.1 Bradycardia, unspecified (principal); R07.89 Other chest pain; F12.90 Cannabis use, unspecified, uncomplicated; Z86.59 Personal history of other mental and behavioral disorders
CPT/HCPCS: 36415; 71046; 80053; 83735; 84484; 85025; 85610; 85730; 93005; 99285

== ENCOUNTER 2024-04-04 04:48 | Emergency (ER) | payer OTHER ==
[2024-04-04 04:55] VITALS: RESP 18
--- NOTE | 2024-04-04 06:18 | ED ---
Skin/Abscess/FB HPI - General Chief complaint: Skin/Abscess/Foreign Body Stated complaint: Rash Time Seen by Provider: 04/04/24 05:57 Source: patient, RN notes reviewed Mode of arrival: ambulatory Limitations: no limitations - History of Present Illness Initial comments: This is a 33-year-old male who presents to the emergency department for a rash. States that this is on his bilateral upper extremities and started a couple of days ago after he was in grass. He has only noticed the rash on his arms, but states that his whole body is itchy. Denies any respiratory symptoms. States that his dog also seemed like he developed some of these lesions. He has not taken anything for the itching. - Related Data Previous Rx's Medication Instructions Recorded Acetaminophen with Codeine 1 tab PO Q4H PRN #12 tab 03/22/17 [Tylenol w/codeine #3] Penicillin V Potassium [Pen Vee K] 500 mg PO QID 10 Days tab 03/22/17 Albuterol Sulfate [Proair Hfa] 1 - 2 puff INHALATION Q6HR PRN #1 01/20/19 inhaler predniSONE 50 mg PO DAILY #5 tablet 01/20/19 Amoxicillin/Potassium Clav 1 each PO Q12HR #20 tab 01/29/19 [Augmentin 875-125 Tablet] Ondansetron Odt [Zofran Odt] 4 mg PO Q8HR PRN #10 tab 08/30/19 Albuterol Inhaler [Ventolin Hfa 1 - 2 puff INHALATION RT-Q6H PRN 11/11/19 Inhaler] #1 inhaler Amoxicillin 500 mg PO Q8H #21 capsule 11/11/19 Promethazine/Dextromethorphan 5 ml PO TID #120 ml 11/11/19 [Phenergan DM Syrup] predniSONE 50 mg PO DAILY #5 tablet 11/11/19 Lidocaine Viscous [Xylocaine 5 ml PO Q3HR PRN #100 ml 06/01/23 Viscous 2%] Lidocaine Viscous [Xylocaine 5 ml PO Q3HR PRN #100 ml 06/01/23 Viscous 2%] Famotidine 40 mg PO DAILY 5 Days #5 tablet 04/04/24 Permethrin 5% Cream [Elimite] 1 applic TOPICAL ONCE #60 gm 04/04/24 hydrOXYzine HCL [Atarax] 25 mg PO QID PRN #30 tab 04/04/24 predniSONE 50 mg PO DAILY 5 Days #5 tab 04/04/24 Allergies Allergy/AdvReac Type Severity Reaction Status Date / Time No Known Allergies Allergy Verified 04/04/24 04:55 Review of Systems ROS Statement: Those systems with pertinent positive or pertinent negative responses have been documented in the HPI. ROS Other: All systems not noted in ROS Statement are negative. Past Medical History Past Medical History: No Reported History History of Any Multi-Drug Resistant Organisms: None Reported Past Surgical History: No Surgical Hx Reported Past Psychological History: ADD/ADHD Smoking Status: Never smoker Past Alcohol Use History: Occasional Past Drug Use History: Marijuana General Exam Limitations: no limitations General appearance: alert, in no apparent distress Head exam: Present: atraumatic, normocephalic, normal inspection Respiratory exam: Present: normal lung sounds bilaterally. Absent: respiratory distress, wheezes, rales, rhonchi, stridor Cardiovascular Exam: Present: regular rate, normal rhythm, normal heart sounds. Absent: systolic murmur, diastolic murmur, rubs, gallop, clicks Neurological exam: Present: alert, oriented X3, CN II-XII intact Psychiatric exam: Present: normal affect, normal mood Skin exam: Present: other (Red erythematous spots on the bilateral upper extremities) Course Vital Signs 04/04/24 04/04/24 04:53 06:42 Temperature 98 F 98.0 F Pulse Rate 75 63 Respiratory 18 18 Rate Blood Pressure 123/73 112/69 O2 Sat by Pulse 98 98 Oximetry Medical Decision Making - Medical Decision Making This is a 33-year-old male who presents to the emergency department for a rash. Was pt. sent in by a medical professional or institution? @ -No Did you speak to anyone other than the patient for history? @ -No Did you review nursing and triage notes? @ -Yes, and I agree, it is accurate with regards to the patient's symptoms. Were old charts reviewed? @ -No Differential Diagnosis? @ -Differential Rash: [place], measles, Lyme disease, erythema multiforme, cellulitis, toxic shock syndrome, Steve Chris syndrome, Kawasaki disease, huseyin mountain spotted fever, contact dermatitis, allergic dermatitis, measles, mumps, rubella, varicella, meningococcal disease, drug reaction, coxsackievirus, This is not meant to be an all-inclusive list. EKG interpreted by me (3pts min.)? @ -Not obtained X-rays interpreted by me (1pt min.)? @ -Not obtained CT interpreted by me (1pt min.)? @ -Not obtained U/S interpreted by me (1pt. min.)? @ -Not obtained What testing was considered but not performed? (CT, X-rays, U/S, labs)? Why? @ -None What meds were considered but not given? Why? @ -None Did you discuss the management of the patient with other professionals? @ -No Did you reconcile home meds? @ -No Was smoking cessation discussed for >3mins.? @ -I discussed smoking cessation for greater than 3 minutes. The risk of smoking were discussed with the patient including but not limited to risks of cancer, stroke, coronary artery disease and COPD. Also discussed with patient were multiple methods of quitting smoking. Lastly we discussed the financial cost of smoking. Was critical care preformed (if so, how long)? @ -No Were there social determinants of health that impacted care today? How? (Ho melessness, low income, unemployed, alcoholism, drug addiction, transportation, low edu. Level, literacy, decrease access to med. care, fdc, rehab)? @ -No Was there de-escalation of care discussed even if they declined? (Discuss DNR or withdrawal of care, Hospice)? @ -No What co-morbidities impacted this encounter? (DM, HTN, Smoking, COPD, CAD, Cancer, CVA, Hep., AIDS, mental health diagnosis, sleep apnea, morbid obesity)? @ -Smoking Was patient admitted / discharged? @ -Discharged. Physical examination potentially suggestive of contact dermatitis. However, there is also the possibility of scabies, fleas, or something similar, especially given that his dog has been itching. Patient given Solu-Medrol, Atarax, famotidine, and triamcinolone cream in the emergency department. Prescription for prednisone, Atarax, and famotidine provided. He was also given a prescription for permethrin cream in the event it is scabies or something similar. Advised close follow-up with his PCP. Case discussed with ED attending Dr. Calderon. Return precautions reviewed in depth, the patient is instructed to return to the emergency department with any new, worsening, or concerning symptoms. Patient verbalized understanding. Undiagnosed new problem with uncertain prognosis? @ -None Drug Therapy requiring intensive monitoring for toxicity (Heparin, Nitro, Insulin, Cardizem)? @ -None Were any procedures done? @ -None Diagnosis/symptom? @ -Rash Acute, or Chronic, or Acute on Chronic? @ -Acute Uncomplicated (without systemic symptoms) or Complicated (systemic symptoms)? @ -Uncomplicated Side effects of treatment? @ -None Exacerbation, Progression, or Severe Exacerbation] @ -Not applicable Poses a threat to life or bodily function? @ -No Disposition Clinical Impression: Rash, Nicotine dependence Disposition: HOME SELF-CARE Instructions (If sedation given, give patient instructions): Permethrin (On the skin), Acute Rash (ED) Additional Instructions: Return to the emergency department with any new, worsening, or concerning symptoms. Take the prednisone and famotidine daily for 5 days. You can take the Atarax or another [id number] antihistamine such as Benadryl up to 4 times daily to help with the itching. Apply the permethrin cream prescribed from the neck down and leave on for 8 to 12 hours before washing off. This will treat any signs of scabies or other mites. The triamcinolone cream provided can be used as a spot treatment on the areas that are particularly itchy. Avoid applying this to the face or genitals. Follow up with your primary care provider in 1-2 days. Prescriptions: hydrOXYzine HCL [Atarax] 25 mg PO QID PRN #30 tab PRN Reason: Itching Permethrin 5% Cream [Elimite] 1 applic TOPICAL ONCE #60 gm Famotidine 40 mg PO DAILY 5 Days #5 tablet predniSONE 50 mg PO DAILY 5 Days #5 tab Is patient prescribed a controlled substance at d/c from ED?: No Referrals: None,Stated [Primary Care Provider] - 1-2 days
[2024-04-04] MEDS: TRIAMCINOLONE ACET 0.5% CREAM 15 GM TUBE TOPICAL ONE (06:34)
[2024-04-04] MEDS: methylPREDNISolone SOD SUCCI 125 MG/2 ML VIAL IM ONE (06:35)
[2024-04-04] MEDS: FAMOTIDINE 20 MG TAB PO STA (06:35)
[2024-04-04] MEDS: hydrOXYzine HCL 25 MG TAB PO ONE (06:35)
[2024-04-04 06:44] VITALS: BP 112/69; PULSE 63; TEMP 98
== END 2024-04-04 06:43 | disposition home or self-care (01) ==
LOC: EC 04:48
DX: R21 Rash and other nonspecific skin eruption (principal); F17.200 Nicotine dependence, unspecified, uncomplicated
CPT/HCPCS: 99282; 96372; 99406; J2919

== ENCOUNTER 2024-08-06 22:09 | Emergency (ER) | payer OTHER ==
[2024-08-06 22:52] LABS: Amorphous Sediment,Urine Rare /hpf; Appearance,Urine Cloudy (Clear); Bilirubin,Urine Negative (Negative); Blood,Urine Negative (Negative); Color,Urine Colorless; Glucose,Urine (UA) Negative (Negative); Ketones,Urine Negative (Negative); Leukocyte Esterase,Urine Negative (Negative); Nitrite,Urine Negative (Negative); PH, Urine 6.5 (5.0-8.0); Protein,Urine Negative (Negative); RBC,Urine 1 /hpf (0-5); Specific Gravity,Urine 1.014 (1.001-1.035); Urobilinogen,Urine <2.0 mg/dL (<2.0); WBC,Urine 1 /hpf (0-5)
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
[2024-08-06] MEDS: IBUPROFEN 600 MG TAB PO STA (23:55)
[2024-08-06] MEDS: LIDOCAINE 4% PATCH TOPICAL ONE (23:56)
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
[2024-08-07] MEDS: ACET/COD 300 MG/30 MG STARTER PACK 6 TAB BTL PO STA (01:27)
[2024-08-07] MEDS: IBUPROFEN 600 MG STARTER PACK 4 TAB BTL PO STA (01:27)
[2024-08-07 01:34] VITALS: BP 130/81; PULSE 71; RESP 17; TEMP 97.8
== END 2024-08-07 01:34 | disposition home or self-care (01) ==
LOC: EC 22:09
DX: S22.32XA Fracture of one rib, left side, initial encounter for closed fracture (principal); Y04.8XXA Assault by other bodily force, initial encounter
CPT/HCPCS: 81001; 99283

== ENCOUNTER 2024-09-27 14:10 | Emergency (ER) | payer OTHER ==
[2024-09-27 14:19] VITALS: RESP 18; TEMP 98.1
--- NOTE | 2024-09-27 14:36 | ED ---
ENT HPI - General Chief complaint: Dental/Oral Stated complaint: ear pain,dental pain Time Seen by Provider: 09/27/24 14:21 Source: patient, RN notes reviewed Mode of arrival: ambulatory Limitations: no limitations - History of Present Illness Initial comments: Patient is a 34 year old male presenting with worsening right facial and tooth pain x 2 days. He states that he has had extensive dental surgery including "front veneers and crowns in the back". He states it feels like "his back molar on the right is infected" and describes the pain as "burning and throbbing" that radiates to his cheek and ear. He states he has a dentist appointment on 10/01/24, but would like a "full course of antibiotics" due to the pain. He notes that he was unable to sleep last night due to the pain, and he took "Ibuprofen 800mg this morning, then another half" before he came to the ED, which provided some relief. He states he is having trouble eating due to the pain as well. He denies any chest pain, shortness of breath, bleeding in the mouth. - Related Data Previous Rx's Medication Instructions Recorded Acetaminophen with Codeine 1 tab PO Q4H PRN #12 tab 03/22/17 [Tylenol w/codeine #3] Penicillin V Potassium [Pen Vee K] 500 mg PO QID 10 Days tab 03/22/17 Albuterol Sulfate [Proair Hfa] 1 - 2 puff INHALATION Q6HR PRN #1 01/20/19 inhaler predniSONE 50 mg PO DAILY #5 tablet 01/20/19 Amoxicillin/Potassium Clav 1 each PO Q12HR #20 tab 01/29/19 [Augmentin 875-125 Tablet] Ondansetron Odt [Zofran Odt] 4 mg PO Q8HR PRN #10 tab 08/30/19 Albuterol Inhaler [Ventolin Hfa 1 - 2 puff INHALATION RT-Q6H PRN 11/11/19 Inhaler] #1 inhaler Amoxicillin 500 mg PO Q8H #21 capsule 11/11/19 Promethazine/Dextromethorphan 5 ml PO TID #120 ml 11/11/19 [Phenergan DM Syrup] predniSONE 50 mg PO DAILY #5 tablet 11/11/19 Lidocaine Viscous [Xylocaine 5 ml PO Q3HR PRN #100 ml 06/01/23 Viscous 2%] Lidocaine Viscous [Xylocaine 5 ml PO Q3HR PRN #100 ml 06/01/23 Viscous 2%] Famotidine 40 mg PO DAILY 5 Days #5 tablet 04/04/24 Permethrin 5% Cream [Elimite] 1 applic TOPICAL ONCE #60 gm 04/04/24 hydrOXYzine HCL [Atarax] 25 mg PO QID PRN #30 tab 04/04/24 predniSONE 50 mg PO DAILY 5 Days #5 tab 04/04/24 Ibuprofen 800 mg PO Q8H PRN #30 tab 08/07/24 Lidocaine 5% Patch [Lidoderm 5% 1 patch TOPICAL DAILY PRN #30 patch 08/07/24 Patch] methocarbamoL [Robaxin-750] 1,500 mg PO TID PRN #30 tab 08/07/24 Amoxic-Pot Clav 875-125Mg 1 tab PO Q12HR #20 tab 09/27/24 [Augmentin 875-125] Allergies Allergy/AdvReac Type Severity Reaction Status Date / Time No Known Allergies Allergy Verified 08/06/24 22:13 Review of Systems ROS Statement: Those systems with pertinent positive or pertinent negative responses have been documented in the HPI. ROS Other: All systems not noted in ROS Statement are negative. Past Medical History Past Medical History: No Reported History History of Any Multi-Drug Resistant Organisms: None Reported Past Surgical History: No Surgical Hx Reported Past Psychological History: ADD/ADHD Smoking Status: Never smoker Past Alcohol Use History: Occasional Past Drug Use History: Marijuana General Exam Limitations: no limitations General appearance: alert, in no apparent distress Head exam: Present: atraumatic, normocephalic, normal inspection Eye exam: Present: normal appearance, PERRL, EOMI. Absent: scleral icterus, conjunctival injection, periorbital swelling ENT exam: Present: normal exam, normal oropharynx, mucous membranes moist, TM's normal bilaterally Neck exam: Present: normal inspection. Absent: tenderness, meningismus, lymphadenopathy Respiratory exam: Present: normal lung sounds bilaterally. Absent: respiratory distress, wheezes, rales, rhonchi, stridor Cardiovascular Exam: Present: regular rate, normal rhythm, normal heart sounds. Absent: systolic murmur, diastolic murmur, rubs, gallop, clicks Neurological exam: Present: alert, oriented X3, CN II-XII intact Skin exam: Present: warm, dry, intact, normal color. Absent: rash Course Vital Signs 09/27/24 09/27/24 14:16 15:24 Temperature 98.1 F 98.1 F Pulse Rate 83 78 Respiratory 18 18 Rate Blood Pressure 124/77 125/81 O2 Sat by Pulse 99 99 Oximetry Medical Decision Making - Medical Decision Making Was pt. sent in by a medical professional or institution (, [facility], TAVERN OPERATOR, urgent care, hospital, or usp...) When possible be specific @ -No Did you speak to anyone other than the patient for history (EMS, parent, family, police, friend...)? What history was obtained from this source @ -No Did you review nursing and triage notes (agree or disagree)? Why? @ -I reviewed and agree with nursing and triage notes Were old charts reviewed (outside hosp., previous admission, EMS record, old EKG, old radiological studies, urgent care reports/EKG's, usp records)? Report findings @ -No old charts were reviewed Differential Diagnosis (chest pain, altered mental status, abdominal pain women, abdominal pain men, vaginal bleeding, weakness, fever, dyspnea, syncope, headache, dizziness, GI bleed, back pain, seizure, CVA, palpatations, mental health, musculoskeletal)? @ -Dental abscess dental infection, toothache infected molar EKG interpreted by me (3pts min.). @ -None X-rays interpreted by me (1pt min.). @ -None done CT interpreted by me (1pt min.). @ -None done U/S interpreted by me (1pt. min.). @ -None done What testing was considered but not performed or refused? (CT, X-rays, U/S, labs)? Why? @ -None What meds were considered but not given or refused? Why? @ -None Did you discuss the management of the patient with other professionals (professionals i.e. WENDIE Greene, TAVERN OPERATOR, lab, RT, psych nurse, social secretary, construction electrician, teacher, tax compliance officer, patient case coordinator)? Give summary @ -No Was smoking cessation discussed for >3mins.? @ -No Was critical care preformed (if so, how long)? @ -No Were there social determinants of health that impacted care today? How? (Homelessness, low income, unemployed, alcoholism, drug addiction, transportation, low edu. Level, literacy, decrease access to med. care, longterm, rehab)? @ -No Was there de-escalation of care discussed even if they declined (Discuss DNR or withdrawal of care, Hospice)? DNR status @ -No What co-morbidities impacted this encounter? (DM, HTN, Smoking, COPD, CAD, Cancer, CVA, ARF, Chemo, Hep., AIDS, mental health diagnosis, sleep apnea, morbid obesity)? @ -None Was patient admitted / discharged? Hospital course, mention meds given and route, prescriptions, significant lab abnormalities, going to OR and other pertinent info. @ -Discharge patient has no drainable abscess. Patient has dental pain concerning for underlying dental infection. Patient discharged on Augmentin with follow-up with dentist in 4 days. Undiagnosed new problem with uncertain prognosis? @ -No Drug Therapy requiring intensive monitoring for toxicity (Heparin, Nitro, Insulin, Cardizem)? @ -No Were any procedures done? @ -No Diagnosis/symptom? @ -Toothache Acute, or Chronic, or Acute on Chronic? @ -Acute Uncomplicated (without systemic symptoms) or Complicated (systemic symptoms)? @ -Uncomplicated Side effects of treatment? @ -No Exacerbation, Progression, or Severe Exacerbation? @ -No Poses a threat to life or bodily function? How? (Chest pain, [place], [place], pneumonia, PE, COPD, DKA, ARF, appy, cholecystitis, CVA, Diverticulitis, Homicidal, Suicidal, threat to staff... and all critical care pts) @ -No Disposition Clinical Impression: Toothache Disposition: HOME SELF-CARE Condition: Stable Instructions (If sedation given, give patient instructions): Toothache (ED) Additional Instructions: Please return to the Emergency Department if symptoms worsen or any other concerns. Prescriptions: Amoxic-Pot Clav 875-125Mg [Augmentin 875-125] 1 tab PO Q12HR #20 tab Is patient prescribed a controlled substance at d/c from ED?: No Referrals: None,Stated [Primary Care Provider] - 1-2 days Time of Disposition: 14:50
[2024-09-27 15:26] VITALS: BP 125/81; PULSE 78
== END 2024-09-27 15:26 | disposition home or self-care (01) ==
LOC: EC 14:10
DX: K08.89 Other specified disorders of teeth and supporting structures (principal)
CPT/HCPCS: 99282